=== PATIENT | female | born 1960 | race Caucasian/White ===

== ENCOUNTER 2019-05-20 16:51 | Emergency (ER) | payer BC ==
[~2019-05-20] VITALS: Ht 162.6 cm; Wt 77.1 kg
[~2019-05-20 16:51] MED LIST: ASPIRIN81 M2 PO; EFFEXOR 5050 MG/1 T1 PO; LISINOPRIL10 MG PO; ZETIA10 MG PO
[2019-05-20] MEDS ORDERED: BENADRYL25 MG PO (17:10)
[2019-05-20] MEDS ORDERED: LIPITOR10 MG PO ×2 (17:10)
[2019-05-20] MEDS ORDERED: BUSPIRONE HCL10 MG PO (17:10)
[2019-05-20] MEDS ORDERED: AMLODIPINE BESY10 MG PO (17:10)
[2019-05-20] MEDS ORDERED: HYDROXYZINE HCL25 M1 PO (17:11)
[2019-05-20 17:49] LABS: HEMATOCRIT 38.6 % (37.0-47.0); HEMOGLOBIN 13.3 gm/dL (12.0-15.0); MCHC 34.4 g/dL (28.0-37.0); MPV 6.7 fl. (7.2-11.1); RBC 4.15 mil/uL (4.20-5.00); RDW-CV 14.3 % (10.5-14.5); WBC 4.5 thou/uL (4.0-11.0)
[2019-05-20 17:58] LABS: CALCIUM 10.1 mg/dL (8.5-10.1); CREATININE 1.2 mg/dL (0.6-1.3)
[2019-05-20 18:03] LABS: ALBUMIN 3.9 g/dL (3.4-5.0); TOTAL BILIRUBIN 0.4 mg/dL (<0.1-1.0); TOTAL PROTEIN 8.1 g/dL (6.4-8.2)
[2019-05-20] MEDS ORDERED: DOXYCYCLINE 10100 MG PO (18:15)
[2019-05-20] MEDS ORDERED: DIFLUCAN150 MG PO (18:16)
[2019-05-20 18:40] VITALS: BP 128/88
== END 2019-05-20 18:41 | disposition home or self-care (01) ==
LOC: M.ERS 16:51
PROVIDERS: Emergency Medicine Emergency Medical Services
DX: B35.9 Dermatophytosis, unspecified (principal); L03.116 Cellulitis of left lower limb; L03.115 Cellulitis of right lower limb; I10 Essential (primary) hypertension; E78.00 Pure hypercholesterolemia, unspecified; Z88.1 Allergy status to other antibiotic agents

== ENCOUNTER 2019-07-19 13:15 | Observation (INO) | payer BC ==
[~2019-07-19] VITALS: Ht 162.6 cm; Wt 78.9 kg
[~2019-07-19 13:15] MED LIST changes: +AMLODIPINE BESY10 MG PO; +BENADRYL25 MG PO; +BUSPIRONE HCL10 MG PO; +DIFLUCAN150 MG PO; +DOXYCYCLINE 10100 MG PO; +HYDROXYZINE HCL25 M2 PO; +LIPITOR10 MG PO
[2019-07-19 13:16] VITALS: BP 107/45
[2019-07-19 13:40] LABS: ABSOLUTE BASOPHILS 0.1 thou/uL (0.0-0.2); ABSOLUTE EOSINOPHILS 0.1 thou/uL (0.0-0.7); ABSOLUTE LYMPHOCYTES 1.1 thou/uL (0.8-5.3); ABSOLUTE MONOCYTES 0.6 thou/uL (0.0-1.2); ABSOLUTE NEUTROPHILS 4.6 thou/uL (1.6-8.1); BASOPHILS 1.1 %; EOSINOPHILS 1.3 %; HEMATOCRIT 34.9 % (37.0-47.0); HEMOGLOBIN 11.9 gm/dL (12.0-15.0); LYMPHOCYTES 17.6 %; MCH 31.9 pg (26.0-34.0); MCV 93.7 fL (80.0-100.0); MONOCYTES 9.7 %; MPV 6.6 fl. (7.2-11.1); NUCLEATED RBCS 0 /100WBC; PLATELET COUNT* 223 thou/uL (150-400); POLYS 70.3 %; RBC 3.72 mil/uL (4.20-5.00); RDW-CV 13.2 % (10.5-14.5); WBC 6.5 thou/uL (4.0-11.0)
[2019-07-19 13:49] LABS: ANION GAP 10 mmol/L (7-16); BUN 23 mg/dL (7-18); CALCIUM 9.1 mg/dL (8.5-10.1); CHLORIDE 96 mmol/L (98-107); CO2 25 mmol/L (21-32); CREATININE 1.9 mg/dL (0.6-1.3); GLUCOSE 128 mg/dL (70-99); POTASSIUM 4.2 mmol/L (3.5-5.1); SODIUM 131 mmol/L (136-145)
[2019-07-19 13:58] LABS: ALBUMIN 3.7 g/dL (3.4-5.0); ALKALINE PHOSPHATASE 97 U/L (46-116); LIPASE 465 U/L (73-393); SGOT 31 U/L (15-37); SGPT 29 U/L (30-65); TOTAL BILIRUBIN 0.3 mg/dL (<0.1-1.0); TOTAL PROTEIN 7.2 g/dL (6.4-8.2); TROPONIN-I LEVEL <0.06 ng/mL (<0.06)
[2019-07-19 15:37] VITALS: BP 112/56
[2019-07-19 16:36] VITALS: BP 105/41
--- NOTE | 2019-07-19 16:50 | 2DMMODE ---
[place] [address] 2 D/M-MODE ECHOCARDIOGRAM Name: BRAD HUNT Room: [address] IN [facility]#: [id number] Admission: 07/19/19 Attend Phys: Aditya Samayoa, Discharge: Date of : 58 Date of Service: 07/19/19 1649 Report #: [id number] THIS REPORT FOR: //name// APPROVED REPORT Study performed: 07/19/2019 15:59:45 EXAM: Comprehensive 2D, Doppler, and color-flow Echocardiogram Patient Location: In-Patient Room #: [facility] Status: routine BSA: 1.83 HR: 72 bpm BP: 112/56 mmHg Rhythm: NSR Other Information Study Quality: Good Indications Arrhythmia 2D Dimensions IVSd: 10.02 (7-11mm) LVOT Diam: 19.11 (18-24mm) LVDd: 50.15 mm PWd: 8.89 (7-11mm) Ascending Ao: 32.81 (22-36mm) LVDs: 27.63 (25-40mm) Aortic Root: 33.23 mm Volumes Left Atrial Volume (Systole) LA ESV Index: 18.00 mL/m2 Aortic Valve AoV Peak Giorgio.: 1.44 m/s AO Peak Gr.: 8.25 mmHg LVOT Max P.20 mmHg AO Mean Gr.: 4.43 mmHg LVOT Mean P.63 mmHg LVOT Max V: 1.34 m/s AO V2 VTI: 28.43 cm LVOT Mean V: 0.72 m/s LORIN (VTI): 2.62 cm2 LVOT V1 VTI: 25.97 cm Mitral Valve E/A Ratio: 0.80 MV Decel. Time: 219.63 ms MV E Max Giorgio.: 0.65 m/[place] [address] 2 D/M-MODE ECHOCARDIOGRAM Name: BRAD HUNT Room: [address] IN [facility].#: [id number] Admission: 07/19/19 Attend Phys: Aditya Samayoa, Discharge: Date of : 58 Date of Service: 07/19/19 1649 Report #: [id number] MV PHT: 63.69 ms MVA (PHT): 3.45 cm2 TDI E/Lateral E': 5.91 E/Medial E': 5.91 Medial E' Giorgio.: 0.11 m/s Lateral E' Giorgio.: 0.11 m/s Pulmonary Valve PV Peak Giorgio.: 0.95 m/s PV Peak Gr.: 3.64 mmHg Left Ventricle The left ventricle is normal size. There is normal LV segmental wall motion. There is normal left ventricular wall thickness. Left ventricular systolic function is normal. The left ventricular ejection fraction is within the normal range. LVEF is 60%. Grade I - abnormal relaxation pattern. Right Ventricle The right ventricle is normal size. The right ventricular systolic function is normal. Atria The left atrium size is normal. The right atrium size is normal. Aortic Valve Mild aortic valve sclerosis. No aortic regurgitation is present. There is no aortic valvular stenosis. Mitral Valve The mitral valve is normal in structure. There is no mitral valve regurgitation noted. No evidence of mitral valve stenosis. Tricuspid Valve The tricuspid valve is normal in structure. Trace tricuspid regurgitation. Unable to assess PA pressure. Pulmonic Valve The pulmonary valve is normal in structure. There is no pulmonic valvular regurgitation. Great Vessels The aortic root is normal in size. IVC is normal in size and collapses >50% [place] [address] 2 D/M-MODE ECHOCARDIOGRAM Name: BRAD HUNT Room: [address] IN [facility]#: [id number] Admission: 07/19/19 Attend Phys: Aditya Samayoa, Discharge: Date of : 58 Date of Service: 07/19/19 1649 Report #: [id number] Pericardium There is no pericardial effusion. <Conclusion> The left ventricle is normal size. There is normal left ventricular wall thickness. Left ventricular systolic function is normal. The left ventricular ejection fraction is within the normal range. LVEF is 60%. Grade I - abnormal relaxation pattern. The right ventricle is normal size. The left atrium size is normal. Mild aortic valve sclerosis. No aortic regurgitation is present. There is no aortic valvular stenosis. The mitral valve is normal in structure. The tricuspid valve is normal in structure. IVC is normal in size and collapses >50% with inspiration. There is no pericardial effusion. There is normal LV segmental wall motion. <ELECTRONICALLY SIGNED> By: Stuart Maher MD, [facility] 07/19/19 1649 1649 1649 Stuart Maher MD, FACC /INF
--- NOTE | 2019-07-19 16:52 | NUR ---
RECEIVED REPORT FROM LEILANI RN IN ER OF EXPECTED ADMISSION AT 1515- DX: SYNCOPE- PT ARRIVED TO UNIT VIA CART TO ROOM AT 1610- SBA TO BED-CARDAIC MONITOR PLACED ORDERED, TRACING SR WITH 1ST DEGREE- UPON ASSESSMENT PT NOTED TO BE A&O X4- CONTINENT OF BOWEL AND BLADDER- SBA WITH TRANSFERS FOR SAFETY- VS 98.1 18 105/41 71 98% ON RA- ABD SOFT/ROUND/NON-TENDER, BS X4 QUADS-LAST BM REPORTED THIS AM- IV NOTED TO RIGH HAND INTACT, IVF INFUSSING PRESCIBED- ECHO COMPLETED THIS SHIFT WITH LVEF NOTED AT 60%- VQ NOTED NEGATIVE FOR PE- SKIN C/D/I- UPPER AND LOWER PARTIALS NOTED- PT DENIES ANY C/O PAIN/DISCOMFORT AT THIS TIME- CALL LIGHT AND PERSONAL BELONGINGS WITH IN REACH- ALL NEEDS MET AT THIS TIME-WCTM
--- NOTE | 2019-07-19 18:19 | EKG ---
[place] [address] ELECTROCARDIOGRAM REPORT Name: BRAD HUNT Room: [address] ADM IN M.R.#: [id number] Admission: 07/19/19 Attend Phys: Aditya Samayoa MD Discharge: Date of : 58 Report #: [id number] THIS REPORT FOR: //name// [facility] ED Test Date: 2019-07-19 Test Time: 13:18:18 Pat Name: BRAD HUNT Department: Room: [facility] Gender: F Music Agent: BLANCA : 1960 Requested By: Fredis Dunn Order Number: [id number] MD: Gio Canseco Measurements Intervals [place]erg Rate: 85 P: 48 OH: 169 QRS: 31 QRSD: 90 T: 36 QT: 383 QTc: 456 Interpretive Statements Sinus rhythm Premature ventricular contractions Borderline T abnormalities, anterior leads Compared to ECG 07/31/2017 13:53:28 Ventricular premature complex(es) now present T-wave abnormality now present Electronically Signed On 07-19-2019 18:19:24 CDT by Gio Canseco [email or web address] <ELECTRONICALLY SIGNED> By: Gio Canseco MD, FACC 07/19/19 1819 1318 1318 Gio Canseco MD, [facility] /EPI
[2019-07-19 20:30] VITALS: BP 91/46
[2019-07-20] VITALS: BP 142/77
[2019-07-20 04:00] VITALS: BP 92/56
[2019-07-20 05:09] LABS: GLYCOHEMOGLOBIN (HGB A1C) 5.4 % (4.8-5.6)
[2019-07-20 05:42] LABS: CALCIUM 8.3 mg/dL (8.5-10.1); CREATININE 1.3 mg/dL (0.6-1.3); MAGNESIUM 1.3 mg/dL (1.8-2.4); POTASSIUM 4.3 mmol/L (3.5-5.1)
--- NOTE | 2019-07-20 06:20 | NUR ---
ASSESSMENT CHARTED. PATIENT SLEEPING DURING MOST OF SHIFT. C/O HEADACHE ONCE, TYLENOL ADMINISTERED, PAIN RESOLVED. FALL PRECAUTIONS IN PLACE. NO COMPLAINTS OF LIGHTHEADEDNESS, DIZZINESS, OR SYNCOPE THIS SHIFT. WILL CONTINUE TO MONITOR.
[2019-07-20 07:57] VITALS: BP 112/72
--- NOTE | 2019-07-20 09:15 | NUR ---
ASSUMED CARE OF PT THIS AM AROUND 0715- DIRECTOR OF FINANCIAL REPORTING IN PLACE ORDERED, TRACING SR- UPON ASSESSMENT PT NOTED TO BE RESTING IN BED- PT A&O X4- CONTINENT OF BOWEL AND BLADDER- UP AD-MC IN ROOM, STEADY GAIT NOTED-LCTA, RESP EVEN AND UN-LABORED- VSS, O2 SAT 97% ON RA- ABD SOFT/ROUND/NON-TENDER, BS X4 QUADS- LAST BM REPORTED 07/19/19- IV TO RIGHT HAND NOTED TO HAVE COME OUT THIS AM- DENIES ANY C/O PAIN/DISCOMFORT- CALL LIGHT AND PERSONAL BELONGINGS WITH IN REACH- PT MAKES NEEDS KNOWN- ALL NEEDS MET AT THIS TIME-WCTM
[2019-07-20 09:25] VITALS: BP 112/72
--- NOTE | 2019-07-20 09:34 | NUR ---
ORDERS RECEIVED FOR OKAY TO D/C TO HOME THIS SHIFT PER WITH HYPERTENTION MEDS NOTED TO BE D/C'D- IV NOTED TO ALREADY OF BEEN OUT, MS SQL DBA D/C'D- D/C EDUCATION/TEACHING/NEEDED FOLLOW UP'S COMMUNICATED TO PT WITH VERBAL UNDERSTANDING NOTED- WRITTEN EDUCATION PROVIDED TO PT PRIOR TO D/C- BELONGINGS PACKED AND ACCOUNTED FOR PER PT- PT CURRENTLY IN GETTING DRESSED AND READY FOR D/C- ALL NEEDS MET AT THIS TIME-WCTM
== END 2019-07-20 09:43 | disposition home or self-care (01) ==
LOC: M.ERS 13:15 → M.TBA-ER 14:26 → M.2W 14:26
PROVIDERS: Emergency Medicine Emergency Medical Services; ADMIT Internal Medicine
DX: R55 Syncope and collapse (principal); I95.2 Hypotension due to drugs; I49.3 Ventricular premature depolarization; F32.9 Major depressive disorder, single episode, unspecified; K21.9 Gastro-esophageal reflux disease without esophagitis; E86.9 Volume depletion, unspecified; N17.0 Acute kidney failure with tubular necrosis; R73.9 Hyperglycemia, unspecified; I10 Essential (primary) hypertension; F17.210 Nicotine dependence, cigarettes, uncomplicated; E78.5 Hyperlipidemia, unspecified; Z79.899 Other long term (current) drug therapy